=== PATIENT | female | born 1960 | race Caucasian/White ===

== ENCOUNTER 2018-02-13 17:02 | Observation (INO) | payer MEDICAID ==
[2018-02-13] MEDS: ONDANSETRON 4 MG INJ IV (17:43)
[2018-02-13] MEDS: morphine 4 MG/ML VIAL IV (17:43)
[2018-02-13] MEDS: SOD CHLORIDE 0.9% 1,000 ML IV ×2 (17:44→21:39)
[2018-02-13 17:56] LABS: ADD MAN DIFF? NO
[2018-02-13 17:57] LABS: BASOPHILS % 0.3 % (0.0-2.0); EOSINOPHILS # 0.4 10^3/ul (0.0-0.5); EOSINOPHILS % 3.7 % (0.0-7.0); HEMATOCRIT 36.5 % (37.0-47.0); HEMOGLOBIN 12.5 g/dl (12.0-16.0); LYMPHOCYTES # 2.1 10^3/ul (0.8-2.9); LYMPHOCYTES % 21.5 % (15.0-51.0); MEAN CORPUSCULAR HEMOGLOBIN 30.6 pg (29.0-33.0); MEAN CORPUSCULAR HGB CONC 34.2 g/dl (32.0-37.0); MEAN CORPUSCULAR VOLUME 89.5 fl (82.0-101.0); MEAN PLATELET VOLUME 10.5 fl (7.4-10.4); MONOCYTE # 0.5 10^3/ul (0.3-0.9); MONOCYTES % 5.1 % (0.0-11.0); NEUTROPHIL # 6.7 10^3/ul (1.6-7.5); NEUTROPHILS % 69.2 % (39.0-77.0); PLATELET COUNT 279 10^3/UL (140-415); RED BLOOD COUNT 4.08 10^6/ul (4.20-5.40); RED CELL DISTRIBUTION WIDTH 12.4 % (11.5-14.5)
[2018-02-13 17:57] LABS: WHITE BLOOD COUNT 9.7 10^3/ul (4.8-10.8)
[2018-02-13 18:24] LABS: INR 0.95; PROTIME 12.8 Sec (11.9-14.9)
[2018-02-13 18:28] LABS: ALANINE AMINOTRANSFERASE 68 IU/L (13-69); ALBUMIN 4.5 g/dl (3.3-4.9); ALBUMIN/GLOBULIN RATIO 1.28; ALKALINE PHOSPHATASE 76 IU/L (42-121); AMYLASE 65 U/L (11-123); ANION GAP 17 (8-16); ASPARTATE AMINO TRANSFERASE 54 IU/L (15-46); BILIRUBIN,INDIRECT 0.2 mg/dl (0-1.1); BILIRUBIN,TOTAL 0.2 mg/dl (0.2-1.3); BLOOD UREA NITROGEN 13 mg/dl (7-20); CALCIUM 9.3 mg/dl (8.4-10.2); CARBON DIOXIDE 28 mmol/L (21-31); CHLORIDE 104 mmol/L (97-110); CREATININE 0.73 mg/dl (0.44-1.00); GLUCOSE 96 mg/dl (70-220); LIPASE 131 U/L (23-300); POTASSIUM 3.8 mmol/L (3.5-5.1); SODIUM 145 mmol/L (135-144)
[2018-02-13 18:32] LABS: PARTIAL THROMBOPLASTIN TIME 26.5 Sec (25.0-35.0)
[2018-02-13 18:37] LABS: ADD UMIC YES; UR ASCORBIC ACID NEGATIVE (NEGATIVE); UR BACTERIA FEW /HPF (NONE SEEN); UR BILIRUBIN (Dip) NEGATIVE (NEGATIVE); UR BLOOD (Dip) 1+ mg/dL (NEGATIVE); UR CLARITY CLEAR (CLEAR); UR COLOR STRAW (YELLOW); UR GLUCOSE (Dip) NEGATIVE (NEGATIVE); UR KETONES (Dip) NEGATIVE (NEGATIVE); UR LEUKOCYTE ESTERASE (Dip) TRACE Leu/ul (NEGATIVE); UR NITRITE (Dip) NEGATIVE (NEGATIVE); UR RBC 0 /HPF (0-5); UR SPECIFIC GRAVITY (Dip) 1.008 (1.003-1.030); UR TOTAL PROTEIN (Dip) NEGATIVE (NEGATIVE); UR UROBILINOGEN (Dip) NEGATIVE (NEGATIVE); UR WBC 1 /HPF (0-5)
[2018-02-13 18:42] LABS: TROPONIN-I < 0.012 ng/ml (0.00-0.12)
[2018-02-13] MEDS: SOD CHLORIDE 0.9% 100 ML (19:00)
[2018-02-13] MEDS: IOHEXOL 300MG/ML 150 ML BTL (19:00)
[2018-02-13] MEDS ORDERED: ONDANSETRON 4 MG INJ IV ×2 (21:00→21:30)
[2018-02-13] MEDS: metroNIDAZOLE 500 MG/NS (PMX) 100 ML IVPB (21:16)
[2018-02-13] MEDS ORDERED: NACL 0.9% 3 ML SYG IV (21:30)
[2018-02-13] MEDS: CIPROFLOXACIN 400MG/D5W 200 ML IVPB (21:40)
[2018-02-13] MEDS: morphine 2 MG INJ IV (23:19)
[2018-02-14] MEDS: metroNIDAZOLE 500 MG/NS (PMX) 100 ML IVPB ×4 (01:46→17:35)
[2018-02-14] MEDS: ACETAMINOPHEN 325 MG TAB PO ×4 (05:20→19:43)
[2018-02-14 05:21] LABS: ADD MAN DIFF? NO
[2018-02-14 05:25] LABS: BASOPHILS % 0.6 % (0.0-2.0); EOSINOPHILS # 0.3 10^3/ul (0.0-0.5); EOSINOPHILS % 4.9 % (0.0-7.0); HEMATOCRIT 34.2 % (37.0-47.0); HEMOGLOBIN 11.8 g/dl (12.0-16.0); LYMPHOCYTES # 1.9 10^3/ul (0.8-2.9); LYMPHOCYTES % 28.5 % (15.0-51.0); MEAN CORPUSCULAR HGB CONC 34.5 g/dl (32.0-37.0); MEAN CORPUSCULAR VOLUME 89.8 fl (82.0-101.0); MEAN PLATELET VOLUME 10.8 fl (7.4-10.4); MONOCYTE # 0.5 10^3/ul (0.3-0.9); MONOCYTES % 8.1 % (0.0-11.0); NEUTROPHIL # 3.8 10^3/ul (1.6-7.5); NEUTROPHILS % 57.6 % (39.0-77.0); PLATELET COUNT 260 10^3/UL (140-415); RED BLOOD COUNT 3.81 10^6/ul (4.20-5.40); RED CELL DISTRIBUTION WIDTH 12.5 % (11.5-14.5)
[2018-02-14 05:25] LABS: WHITE BLOOD COUNT 6.7 10^3/ul (4.8-10.8)
[2018-02-14 06:00] LABS: ALANINE AMINOTRANSFERASE 56 IU/L (13-69); ALBUMIN 3.7 g/dl (3.3-4.9); ALBUMIN/GLOBULIN RATIO 1.15; ALKALINE PHOSPHATASE 61 IU/L (42-121); ANION GAP 15 (8-16); ASPARTATE AMINO TRANSFERASE 43 IU/L (15-46); BILIRUBIN,INDIRECT 0.4 mg/dl (0-1.1); BILIRUBIN,TOTAL 0.4 mg/dl (0.2-1.3); BLOOD UREA NITROGEN 11 mg/dl (7-20); CALCIUM 8.7 mg/dl (8.4-10.2); CARBON DIOXIDE 28 mmol/L (21-31); CHLORIDE 107 mmol/L (97-110); CREATININE 0.75 mg/dl (0.44-1.00); GLUCOSE 91 mg/dl (70-220); MAGNESIUM 1.9 mg/dl (1.7-2.5); POTASSIUM 4.1 mmol/L (3.5-5.1); SODIUM 146 mmol/L (135-144); TOTAL PROTEIN 6.9 g/dl (6.1-8.1)
[2018-02-14] MEDS: CIPROFLOXACIN 400MG/D5W 200 ML IVPB ×2 (09:05→20:15)
[2018-02-14 10:19] LABS: FREE T4 (FREE THYROXINE) 1.02 ng/dl (0.64-1.79)
[2018-02-14 10:23] LABS: HEMOGLOBIN A1C 5.4 % (0-5.9)
[2018-02-14] MEDS: SOD CHLORIDE 0.45% 1,000 ML IV (11:39)
[2018-02-15] MEDS: SOD CHLORIDE 0.45% 1,000 ML IV ×2 (00:13→12:30)
[2018-02-15] MEDS: metroNIDAZOLE 500 MG/NS (PMX) 100 ML IVPB ×4 (00:14→18:00)
[2018-02-15] MEDS: ACETAMINOPHEN 325 MG TAB PO ×3 (00:14→17:38)
[2018-02-15] MEDS: CIPROFLOXACIN 400MG/D5W 200 ML IVPB (08:59)
[2018-02-15] MEDS: NA PHOSPHATE/BIPHOS 133 ML ENEMA PR (14:38)
== END 2018-02-15 18:55 | disposition home or self-care (01) ==
LOC: MS1 22:35 → E/R 17:02 → MS1 20:58
DX: K63.89 Other specified diseases of intestine (principal)
CPT/HCPCS: 36415; 74177; 80053; 81001; 82150; 83036; 83605; 83690; 83735; 84439; 84443; 84484; 85025; 85610; 85730; 87040; 87086; 93005; 96374; 96375; 99285-25

== ENCOUNTER 2019-04-28 13:10 | Emergency (ER) | payer SELFPAY, MEDICAID ==
[2019-04-28] MEDS: ACETAMINOPHEN 325 MG TAB PO (14:18)
[2019-04-28] MEDS: DIPHTH/TET/ACEL PERTUSS (ADULT) 0.5 ML VIAL IM* (14:19)
== END 2019-04-28 16:42 | disposition home or self-care (01) ==
LOC: FTE 13:10
DX: S80.02XA Contusion of left knee, initial encounter (principal); S00.33XA Contusion of nose, initial encounter; S09.92XA Unspecified injury of nose, initial encounter; W01.0XXA Fall on same level from slipping, tripping and stumbling without subsequent striking against object, initial encounter; Y92.9 Unspecified place or not applicable
CPT/HCPCS: 70160; 72040; 73110-LT; 73564-50; 90471; 90715; 99284-25